=== PATIENT | male | born 2000 | race Caucasian/White ===

== ENCOUNTER 2022-07-25 12:09 | Emergency (ER) | payer OTHER ==
[~2022-07-25] VITALS: Ht 172.7 cm; Wt 75.0 kg
[2022-07-25 12:16] VITALS: BP 153/83; TEMP 98
[2022-07-25] MEDS ORDERED: ZOFRAN ODT4 MG PO (13:35)
[2022-07-25 14:04] VITALS: PULSE 76
== END 2022-07-25 14:05 | disposition home or self-care (01) ==
LOC: COL.ER 12:09
DX: F10.10 Alcohol abuse, uncomplicated (principal); Z28.310 Unvaccinated for COVID-19